=== PATIENT | male | born 1995 | race Caucasian/White ===

== ENCOUNTER 2023-08-31 18:26 | Outpatient (REF) | payer BC, SELFPAY ==
[2023-08-31 21:13] LABS: Abs Immature Grans 0.02 10^3/uL (0.0-0.06); Absolute Basophil Count 0.07 10^3/uL (0.0-0.2); Absolute Eosinophil Count 0.17 10^3/uL (0.0-0.7); Absolute Lymphocyte Count 1.25 10^3/uL (1.2-3.4); Absolute Monocyte Count 0.68 10^3/uL (0.1-0.8); Absolute Neutrophil Count 6.45 10^3/uL (1.2-6.7); Basophils % 0.8; HCT 50.5 % (40.0-50.0); HGB 17.6 g/dL (13.5-17.5); Immature Grans % 0.2; Lymphocytes % 14.5; MCH 30.2 pg (27.0-33.0); MCHC 34.9 % (32.0-36.0); MCV 87 fL (80-95); MPV 10.6 fL (8.0-11.0); Monocytes % 7.9; Neutrophils % 74.6; Platelet Count 232 10^3/uL (130-400); RBC 5.83 10^6/uL (4.36-5.78); RDW 13.2 % (11.8-14.1); RDW-SD 41.1 fL; WBC 8.64 10^3/uL (4.4-10.8)
[2023-08-31 21:21] LABS: ALT 60 U/L (16-63); AST 29 U/L (15-37); Albumin 4.9 g/dL (3.4-5.0); Alkaline Phosphatase 79 U/L (46-116); Anion Gap 11.2 mmol/L (3-11); BUN 12 mg/dL (7-18); Bilirubin, Total 0.7 mg/dL (0.2-1.0); CO2 25.8 mmol/L (21.0-32.0); CREATININE 1.1 mg/dL (0.70-1.30); Calcium 10.3 mg/dL (8.5-10.1); Chloride 99 mmol/L (98-107); Estimated GFR 94.36 (mL/min/1.73m2); Glucose 104 mg/dL (74-106); Magnesium 1.7 mg/dL (1.8-2.4); Sodium 136 mmol/L (136-145); Total Protein 9.4 g/dL (6.4-8.2)
[2023-09-02 11:03] LABS: Campylobacter PCR Negative (Negative); Salmonella PCR Negative (Negative); Shiga Toxin PCR Negative (Negative); Shigella/Enteroinvasive Ecoli Negative (Negative)
== END 2023-08-31 18:27 | disposition home or self-care (01) ==
LOC: LBN 18:26
PROVIDERS: Visit Provider Nurse Practitioner Family
DX: R19.7 Diarrhea, unspecified (principal)
CPT/HCPCS: 80053; 87329; 87505; 83735; 85025; 87177

== ENCOUNTER 2023-08-31 21:03 | Observation (INO) | payer BC, SELFPAY ==
[2023-08-31 21:09] VITALS: BP 130/79; PULSE 81; RESP 18; TEMP 36.4; O2SAT 98
[2023-08-31] MEDS: Ketorolac 15 MG/ML VIAL IVP (22:05)
[2023-08-31] MEDS: MORPHine 4 MG/ML SYR 2 MG IVP (22:05)
[2023-08-31] MEDS: Ondansetron 4 MG/2 ML VIAL IVP (22:05)
[2023-08-31] MEDS: Normal Saline 1,000 ML 1000 ML IV (22:08)
[2023-08-31 22:09] LABS: Abs Immature Grans 0.02 10^3/uL (0.0-0.06); Absolute Basophil Count 0.02 10^3/uL (0.0-0.2); Absolute Monocyte Count 0.45 10^3/uL (0.1-0.8); Absolute Neutrophil Count 6.78 10^3/uL (1.2-6.7); Basophils % 0.2; Eosinophils % 1.2; HCT 50.6 % (40.0-50.0); HGB 17.7 g/dL (13.5-17.5); Immature Grans % 0.2; Lymphocytes % 11.9; MCH 29.9 pg (27.0-33.0); MCV 86 fL (80-95); MPV 9.9 fL (8.0-11.0); Monocytes % 5.4; Neutrophils % 81.1; Platelet Count 230 10^3/uL (130-400); RBC 5.92 10^6/uL (4.36-5.78); RDW 13.1 % (11.8-14.1); RDW-SD 40.6 fL; WBC 8.37 10^3/uL (4.4-10.8)
[2023-08-31 22:24] LABS: ALT 63 U/L (16-63); AST 25 U/L (15-37); Alkaline Phosphatase 79 U/L (46-116); Anion Gap 11.2 mmol/L (3-11); BUN 12 mg/dL (7-18); Bilirubin, Total 0.9 mg/dL (0.2-1.0); CO2 26.8 mmol/L (21.0-32.0); CREATININE 1.2 mg/dL (0.70-1.30); Calcium 10.5 mg/dL (8.5-10.1); Chloride 97 mmol/L (98-107); Glucose 121 mg/dL (74-106); Lipase 39 U/L (16-77); Sodium 135 mmol/L (136-145); Total Protein 10.3 g/dL (6.4-8.2)
[2023-08-31] MEDS: Normal Saline - Diluent 50 ML VIAL IJ (22:39)
[2023-08-31] MEDS: Omnipaque 350 MG/ML 100 ML BTL IJ (22:40)
--- NOTE | 2023-08-31 22:45 | DI.CT_ITS ---
Exam(s) CT ABDOMEN PELVIS W EXAM: CT ABDOMEN PELVIS W CLINICAL HISTORY: abdominal pain, periumbilical, nausea vom diarhhea. TECHNIQUE: Imaging Protocol: Axial computed tomography images with coronal and sagittal reformatted images were created and reviewed CONTRAST MATERIAL: Intravenous: Omnipaque 350 Contrast volume:100 ml Oral: no COMPARISON: No exams were available for comparison FINDINGS: ABDOMEN/PELVIS: Lung Bases: Normal where visualized. Liver: Portal venous air, greater in left lobe. Normal density. No measurable mass. Gallbladder and biliary tract: No radiodense calculus or dilation. Pancreas: Normal density, no abnormal calcifications or inflammatory process. Spleen: Normal. Kidneys: Normal size, contour and axis. No radiodense stones or obstructive uropathy. No suspicious m asses seen. Adrenal glands: No masses seen. Vasculature: Abdominal aorta non-dilated. Soft tissues: Unremarkable. Bladder: No gross wall thickening. No calculi.No focal mass. Bowel: Stomach is somewhat distended with fluid/food and air. There is abnormal gas within the wall of the posterior fundus. There is no wall thickening. The remainder of the stomach is unremarkable. The duodenum appears normal. There is mild dilatation of loops of small bowel in the left upper qu adrant which show fluid. Findings could represent ileus versus partial small bowel obstruction. The colon arm is mainly decompressed with small amount of stool and fluid. The appendix is normal. Peritoneal cavity: No ascites, collection or mesenteric inflammatory response. Bones: Unremarkable for age. Reproductive organs: Within normal limits. Lymph nodes: Unremarkable. IMPRESSION:: Portal venous air. Air seen within the wall of the fundus of the stomach posteriorly. No evidence of wall thickening or perforating ulcer. Mild small bowel dilatation could represent il eus versus partial obstruction. RADIATION DOSE DELIVERED: 860.84mGy.cm Total DLP DATA REPOSITORY: All CT scans at this facility are submitted to the National Radiology Data Registry (NRDR) Dose Index Registry (DIR) with the [employer] (A[employer]). RADIATION OPTIMIZATION: All CT scans at this facility use at least one of these dose optimization te chniques: automated exposure control; mA and/or kV adjustment per patient size (includes targeted exa ms where dose is matched to clinical indication); or iterative reconstruction.
--- NOTE | 2023-08-31 23:26 | ED.GENADUL_ITS ---
Discharge Plan Disposition Patient Disposition: Admit to [facility] Discharge Details Chief Complaint: Abd Prob Clinical Impression: Pneumatosis intestinalis, Gastric anomaly Primary Care Provider: Unknown,Unknown ED Provider: Andrey Mitchell Home Meds and New Rx's Prescriptions: No Action propranolol 120 mg capsule,extended release 24 hr 120 mg PO DAILY Medical Decision Making 28-year-old male presents with 1 day of nausea diarrhea bloating abdominal pain periumbilical in nature, afebrile nontoxic however does appear uncomfortable, periumbilical abdominal pain on palpation without guarding or rebounding; recent family contacts with diarrhea within the last couple of days specifically his child. No history of abdominal surgeries. Patient nontachycardic, normotensi ve. Consider viral gastroenteritis versus biliary colic versus early cholecystitis versus less likely pancreatitis must also consider colitis versus foodborne illness. Will obtain screening labs fluids analgesia antiemetics, CT abdomen pelvis with IV contrast. Disposition pending reassessment and imaging and lab results 23: 49 evidence of pneumatosis of the gastric wall as well as portal venous gas, has started patient on empiric Zosyn, continue with fluids, patient is resting comfortably nonperitoneal nontoxic. Patient has no known risk factors for pneumatosis does not have an ischemic picture to his presentation, no history of Crohn's or ulcerative colitis no recent instrumentation no recent travel no new medications no recent antibiotics, no new exposures such as occupational expos ures or animal exposures; patient was recently in the hospital with his as she is 7 days . Have added C. difficile, ova parasites, stool culture, blood culture. I discussed case with Dr. Waterman general surgery who admit patient for close observation continue fluids and antibiotics. HPI General Date/Time Provider Initiated Documentation: 08/31/23 21:13 . HPI Narrative: 28-year-old male presents with abdominal pain bloating diarrhea nausea since this morning, went to urgent care earlier today, Imodium and Gas-X did not help, was given return precautions for worsening symptoms. Persistent periumbilical abdominal discomfort nausea and bloating, multiple episodes of loose stool. Of note patient's family members have also had diarrhea recently. Related Data Home Medications Medication Instructions Recorded Confirmed propranolol 120 mg capsule,24 120 mg PO DAILY 08/31/23 08/31/23 hr,extended release Allergies Allergy/AdvReac Type Severity Reaction Status Date / Time No Known Allergies Allergy Verified 08/31/23 17:29 General Stated Complaint: Abd Prob MENDY: 3 Review of Systems Narrative: Review of Systems Constitutional: negative Eyes: negative ENT: negative Cardiovascular: negative Respiratory: negative Gastrointestinal: Abdominal pain nausea diarrhea : negative Musculoskeletal: negative Skin: negative Neurologic: negative Psych: negative PFSH All Active Problems (Updated 08/31/23 @ 23:52 by Andrey Mitchell MD) Pneumatosis intestinalis (Acute) Gastric anomaly (Acute) Social History Smoking/Tobacco Use Status: Never Smoking risk assessment performed?: Yes Alcohol Intake: current Alcohol Intake frequency: holidays/special occasions only Alcohol type: beer Drug use: Never Substance use type: does not use Do you feel safe at home: Yes Do you feel safe in your relationship?: Yes Exam Narrative Exam Narrative: Physical Examination General: alert, awake, cooperative, resting comfortably, no acute distress HEENT: normocephalic, atraumatic; PERRL, EOM intact, conjunctiva normal; no nasal discharge; moist mucous membranes, oral and pharyngeal mucosa normal, tolerating secretions Neck: supple, trachea midline; full ROM Chest: normal to inspection Respiratory: normal respiratory effort, speaking in full sentences, clear to auscultation, no wheezing, rales or rhonchi Cardiac: regular rate, regular rhythm, S1S2 intact, no murmurs rubs or gallops GI: abdomen soft, subjective periumbilical discomfort, non-distended; no palpable mass or hepatosplenomegaly Skin: no lesions, rashes or trauma appreciated Neuro: AAOx3, normal speech, moving all extremities Psych: Appropriate mood and affect Course Vital Signs Vital signs: Vital Signs Temperature 36.4 C L 08/31/23 21:09 Pulse 81 08/31/23 21:09 Respiratory Rate 18 08/31/23 21:09 Blood Pressure 130/79 08/31/23 21:09 Pulse Oximetry 98 08/31/23 21:09 Temperature 36.4 C L 08/31/23 21:09 Temperature Source Temporal Artery Scan 08/31/23 21:09 Pulse 81 08/31/23 21:09 Respiratory Rate 18 08/31/23 21:09 Respiratory Effort Normal, Non-Labored 08/31/23 21:23 Blood Pressure 130/79 08/31/23 21:09 Blood Pressure Position Sitting 08/31/23 21:09 Pulse Oximetry 98 08/31/23 21:09 Oxygen Delivery Method Room Air 08/31/23 21:09 Oxygen Flow Rate 0 08/31/23 21:09 Pain Level 6 08/31/23 21:09 Lab/Test Results Lab/Test Results: Laboratory Tests Range/Units 08/31/23 08/31/23 22:01 22:01 WBC (4.4-10.8) 10^3/uL 8.37 RBC (4.36-5.78) 10^6/uL 5.92 H Hgb (13.5-17.5) g/dL 17.7 H Hct (40.0-50.0) % 50.6 H MCV (80-95) fL 86 MCH (27.0-33.0) pg 29.9 MCHC (32.0-36.0) % 35.0 RDW (11.8-14.1) % 13.1 Plt Count (130-400) 10^3/uL 230 MPV (8.0-11.0) fL 9.9 Immature Gran % 0.2 Neutrophils % 81.1 Lymphocytes % 11.9 Monocytes % 5.4 Eosinophils % 1.2 Basophils % 0.2 Nucleated RBC % (0.0-0.3) % 0.0 Absolute Neutrophils (1.2-6.7) 10^3/uL 6.78 H Absolute Lymphocytes (1.2-3.4) 10^3/uL 1.00 L Absolute Monocytes (0.1-0.8) 10^3/uL 0.45 Absolute Eosinophils (0.0-0.7) 10^3/uL 0.10 Absolute Basophils (0.0-0.2) 10^3/uL 0.02 Sodium (136-145) mmol/L 135 L Potassium (3.5-5.1) mmol/L 4.0 Chloride (98-107) mmol/L 97 L Carbon Dioxide (21.0-32.0) mmol/L 26.8 Anion Gap (3-11) mmol/L 11.2 H BUN (7-18) mg/dL 12 Creatinine (0.70-1.30) mg/dL 1.2 Est GFR (CKD-EPI 2020) (mL/min/1.73m2) 85.00 Glucose (74-106) mg/dL 121 H Calcium (8.5-10.1) mg/dL 10.5 H Total Bilirubin (0.2-1.0) mg/dL 0.9 AST (15-37) U/L 25 ALT (16-63) U/L 63 Alkaline Phosphatase (46-116) U/L 79 Total Protein (6.4-8.2) g/dL 10.3 H Albumin (3.4-5.0) g/dL 5.0 Lipase (16-77) U/L 39 PAWSS Have you Been Recently Intoxicated or Drunk Within the Last 30 days?: No Have you Ever Experienced Previous Episodes of Alcohol Withdrawal?: No Have you ever Experienced Withdrawal Seizures?: No Have you ever Experienced Delirium Tremens(DT)s?: No Have you ever undergone Alcohol Rehabilitation Treatment (i.e, in ot outpatie nt treatment programs)?: No Have you ever Experienced Blackouts?: No Have you ever Combined Alcohol with other Downers within the last 90 days?: No Have you ever Combined Alcohol with any other Substance of Abuse during the last 90 days?: No Positive Blood Alcohol level on Presentation? [PCS.BAL]: No Evidence of Increased Autonomic Activity (i.e. HR>120, tremor, sweating, agitation, nausea)?: No Result: 0
--- NOTE | 2023-08-31 23:27 | DI.VRAD_ITS ---
Addendum created by Carol Bee MD on 08/31/2023 11:35:01 PM EDT: Correction of a typographical error in the findings as follows: Stomach and bowel: There is no convincing colonic wall thickening allowing for the submucosal fat deposition. This report contains findings that may be critical to patient care. The pertinent findings were communicated via telephone with Andrey Mitchell at 11:34 PM EDT on 08/31/2023. The findings were acknowledged and understood. Initial report created on 08/31/2023 11:27:11 PM EDT: PROCEDURE INFORMATION: Exam: CT Abdomen And Pelvis With Contrast Exam date and time: 08/31/2023 10:41 PM Age: 28 years old Clinical indication: Other: Abdominal pain, periumbilical, nausea vom diarhhea TECHNIQUE: Imaging protocol: Computed tomography of the abdomen and pelvis with contrast. Radiation optimization: All CT scans at this facility use at least one of these dose optimization techniques: automated exposure control; mA and/or kV adjustment per patient size (includes targeted exams where dose is matched to clinical indication); or iterative reconstruction. Contrast material: OMNI 350; Contrast volume: 100 ml; Contrast route: INTRAVENOUS (IV); COMPARISON: No relevant prior studies available. FINDINGS: Liver: Portal venous gas [id number] liver, moderate in volume. No hepatic masses. Gallbladder and bile ducts: No calcified stones. No ductal dilation. Pancreas: No ductal dilation. No masses. Spleen: No splenomegaly or focal lesions. Adrenal glands: No mass. Kidneys and ureters: No hydronephrosis. No renal masses. Stomach and bowel: The stomach is moderately distended. Posterior gastric wall at the cardia demonstrates pneumatosis without significant wall thickening. Submucosal fat deposition in the colon, likely habitus and or diet related. Moderate distension of mid small bowel with air-fluid levels. No significant wall thickening or pneumatosis. Relatively gradual transition to decompressed small bowel distally. Appendix: No evidence of appendicitis. Intraperitoneal space: No free air. No significant fluid collection. Vasculature: Portal vein, SMV, aorta, IVC are patent. Lymph nodes: No significantly enlarged lymph nodes. Urinary bladder: Unremarkable as visualized. Reproductive: Unremarkable as visualized. Bones/joints: No acute fracture. Soft tissues: No suspicious lesions. Other findings: There is no convincing clinical thickening allowing for the submucosal fat deposition. IMPRESSION: 1. Pneumatosis of the proximal gastric wall without wall thickening, etiology uncertain. 2. Portal venous gas in the liver is likely secondary to the gastric disease. 3. Moderate mid small bowel ileus favored over mechanical obstruction. No small bowel pneumatosis. Dictated and Authenticated by: Carol Bee MD. Ordering:VIRGIL Balderas MD
[2023-09-01] VITALS (10 sets, daily range): BP systolic 103–130; BP diastolic 61–79; PULSE 48–81; RESP 13–19; TEMP 37–37.3; O2SAT 96–98
[2023-09-01 00:31] LABS: Source Nasal/Nares
[2023-09-01] MEDS: PIPERACILLIN/TAZO 3.375 GM in Normal Saline 50 ML IVPB (00:41)
--- NOTE | 2023-09-01 00:43 | NUR.NOTE ---
Nursing Note: Patient takes Propranolol 120mg at bedtime for SVT. Patient took home medication at approximately 0030.
[2023-09-01 00:52] LABS: Abs Immature Grans 0.02 10^3/uL (0.0-0.06); Absolute Basophil Count 0.01 10^3/uL (0.0-0.2); Absolute Eosinophil Count 0.08 10^3/uL (0.0-0.7); Absolute Lymphocyte Count 0.94 10^3/uL (1.2-3.4); Absolute Monocyte Count 0.53 10^3/uL (0.1-0.8); Absolute Neutrophil Count 6.14 10^3/uL (1.2-6.7); Basophils % 0.1; HCT 44.9 % (40.0-50.0); HGB 15.6 g/dL (13.5-17.5); Immature Grans % 0.3; Lymphocytes % 12.2; MCH 30.1 pg (27.0-33.0); MCHC 34.7 % (32.0-36.0); MCV 87 fL (80-95); Monocytes % 6.9; Neutrophils % 79.5; Platelet Count 208 10^3/uL (130-400); RBC 5.19 10^6/uL (4.36-5.78); RDW-SD 40.5 fL; WBC 7.72 10^3/uL (4.4-10.8)
[2023-09-01 01:01] LABS: COVID-19 PCR Negative (Negative)
[2023-09-01] MEDS: Lactated Ringers 1,000 ML 75 ML IV ×2 (02:10→13:41)
[2023-09-01] MEDS: Normal Saline Flush 10 ML SYR IVP ×2 (02:10→08:33)
[2023-09-01 04:52] LABS: C Diff PCR Negative (Negative)
[2023-09-01 06:37] LABS: Abs Immature Grans 0.02 10^3/uL (0.0-0.06); Absolute Basophil Count 0.01 10^3/uL (0.0-0.2); Absolute Lymphocyte Count 1.02 10^3/uL (1.2-3.4); Absolute Monocyte Count 0.69 10^3/uL (0.1-0.8); Absolute Neutrophil Count 5.96 10^3/uL (1.2-6.7); Basophils % 0.1; Eosinophils % 1.3; HCT 44.7 % (40.0-50.0); HGB 15.5 g/dL (13.5-17.5); Immature Grans % 0.3; Lymphocytes % 13.1; MCH 29.9 pg (27.0-33.0); MCHC 34.7 % (32.0-36.0); MCV 86 fL (80-95); MPV 10.4 fL (8.0-11.0); Monocytes % 8.8; Neutrophils % 76.4; Platelet Count 207 10^3/uL (130-400); RBC 5.19 10^6/uL (4.36-5.78); RDW 13.2 % (11.8-14.1)
[2023-09-01 07:49] LABS: Anion Gap 12.3 mmol/L (3-11); BUN 11 mg/dL (7-18); CO2 23.7 mmol/L (21.0-32.0); CREATININE 1.1 mg/dL (0.70-1.30); Calcium 9.9 mg/dL (8.5-10.1); Chloride 100 mmol/L (98-107); Estimated GFR 94.36 (mL/min/1.73m2); Glucose 108 mg/dL (74-106); Magnesium 1.6 mg/dL (1.8-2.4); Potassium 3.9 mmol/L (3.5-5.1); Sodium 136 mmol/L (136-145)
[2023-09-01 08:17] LABS: Procalcitonin 0.2 ng/mL
[2023-09-01] MEDS: Pantoprazole 40 MG VIAL IVP (08:34)
[2023-09-01] MEDS: Psyllium PKT 1 EACH PO (08:34)
--- NOTE | 2023-09-01 08:45 | RT.EKG_ITS ---
APPROVED REPORT Exam: Resting ECG Reason for Exam: irregular HR Patient Location: I HR:72 bpm ECG Measurements Heart Rate 72 AXIS KS 166 P 25 QRSd 96 QRS 83 QT 349 T 16 QTc 382 Conclusion Sinus rhythm...normal P axis, V-rate 50- 99 ST elev, probable normal early repol pattern...ST elevation, age<55
[2023-09-01] MEDS: MAGNESIUM SULFATE 1 GM/100 ML BAG IVPB (09:23)
--- NOTE | 2023-09-01 10:02 | INITIAL_ITS ---
Date of service: 09/01/23 Time of Service: 10:02 Care Management Initial Assmt Initial Assessment REASON FOR HOSPITALIZATION:: Pneumotosis PREVIOUS FUNCTIONAL STATUS/SOCIAL/FAMILY SUPPORTS:: Philippe lives in [place]. His parents, Don and Natalie, live nearby and are supportive. He and his girlfriend recently had their first child, Kam. 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 CURRENT FUNCTIONAL STATUS:: Philippe was lying in bed resting when CM met with him. His mother, Natalie, was in the room visiting. Philippe stated that he is waiting to hear more about his plan from MD, although he feels that he will likely remain at [facility] overnight again. He is looking forward to returning home to spend time with his son, who is only eight days old. CM will continue to follow. ADVANCE DIRECTIVES:: Not on file; CM will offer forms. Has patient been provided with info about the portal/API?: Yes Did the patient sign up for the portal?: No CODE STATUS:: Full Code INSURANCE COVERAGE / FINANCIAL ISSUES:: BC/BS CURRENT HOME/COMMUNITY SERVICES/EQUIPMENT:: none PRIMARY CARE PHYSICIAN:: Nel Ochoa; [facility] POTENTIAL DISCHARGE NEEDS:: PCP f/u using president/gm production & live experiences provider, if no PCP. PATIENT/FAMILY EDUCATION NEEDS:: Review discharge instructions and limitations, discussion of self care needs including ask me three. ANTICIPATED BARRIERS TO DISCHARGE:: none TRANSPORTATION:: via private vehicle by family. PLAN:: Philippe will return home once medically cleared. His family will drive him home via private vehicle when ready. He will follow up with his PCP and discharge plan of care. CM will continue to follow. PFSH All Active Problems (Updated 09/01/23 @ 10:27 by Jane Pan DO) Paroxysmal SVT (supraventricular tachycardia) (Acute) Viral gastroenteritis (Acute) Pneumatosis intestinalis (Acute) Gastric anomaly (Acute) Surgical History (Updated 09/01/23 @ 10:27 by Jane Pan DO) History of cardiac radiofrequency ablation (RFA) Social History Smoking/Tobacco Use Status: Never Smoking risk assessment performed?: Yes Alcohol Intake: current Alcohol Intake frequency: holidays/special occasions only Alcohol type: beer Drug use: Never Substance use type: does not use Housing: house Do you feel safe at home: Yes Do you feel safe in your relationship?: Yes
[2023-09-01 10:03] LABS: Lab Add On Test DONE
--- NOTE | 2023-09-01 10:23 | W.PM.HP.N ---
Date of service: 09/01/23 Time of Service: : Assessment and Plan Assessment and plan (1) Pneumatosis intestinalis: Status: Acute (2) Gastric anomaly: Status: Acute (3) Viral gastroenteritis: Status: Acute Assessment and plan: CT scan reviewed. Clinically patient feels better today. He is having no pain or nausea. He thinks he could eat. Labs are normal today. Do not have a good explanation for the abnormalities noted on CT. Patient denies forceful vomiting. He feels good today. We will try some clears and see how he tolerates this. Continue supportive care. (4) Paroxysmal SVT (supraventricular tachycardia): Status: Acute (5) History of cardiac radiofrequency ablation (RFA): History of Present Illness Narrative: Patient is a 26-year-old male with a history of SVT and cardiac ablation. This is controlled on beta-blockers. Yesterday he developed severe diarrhea and abdominal pain and came into the ER. He had x1 episode of vomiting. He said it was not forceful. He normally does not have a history of GI problems such as Crohn's or ulcerative colitis. He denies any travel. He has not been on antibiotics recently. His girlfriend just gave to their first child and he was in the hospital on OB. He did eat some fast food and fried chicken. His girlfriend ate the same thing and was not ill. No one else at home is ill. He is feeling better today. He is not nauseous. He thinks he might be hungry. He has not had any diarrhea since he has been in the hospital and we have not been able to collect a stool specimen Review of Systems All systems reviewed & are unremarkable except as noted in HPI and below PFSH All Active Problems (Updated 09/01/23 @ 10:27 by Jane Pan DO) Paroxysmal SVT (supraventricular tachycardia) (Acute) Viral gastroenteritis (Acute) Pneumatosis intestinalis (Acute) Gastric anomaly (Acute) Surgical History (Updated 09/01/23 @ 10:27 by Jane Pan DO) History of cardiac radiofrequency ablation (RFA) Social History Smoking/Tobacco Use Status: Never Smoking risk assessment performed?: Yes Alcohol Intake: current Alcohol Intake frequency: holidays/special occasions only Alcohol type: beer Drug use: Never Substance use type: does not use Housing: house Do you feel safe at home: Yes Do you feel safe in your relationship?: Yes Meds Allergies and Home Medications Allergies Allergy/AdvReac Type Severity Reaction Status Date / Time No Known Allergies Allergy Verified 08/31/23 17:29 Home Medications Medication Instructions Recorded Confirmed Type propranolol 120 mg capsule,24 120 mg PO DAILY 08/31/23 08/31/23 History hr,extended release propranolol 20 mg tablet 20 mg PO BID 09/01/23 09/01/23 History Exam Const General: cooperative, healthy appearing and comfortable Nutritional Appearance: overweight Orientation: alert, awake and oriented x3 Other: PHYSICAL EXAM GENERAL APPEARANCE: Alert, healthy appearance, oriented, x 3,? in no acute distress HEAD, EYES, EARS, NECK, THROAT: Head is normocephalic, pupils equal, round, reactive to light and accommodation, ocular movement intact, sclera clear and no jaundice. ?Dentition intact. No sore throat.? No jaw pain. No thrush NECK: no lymphadenopathy.? Trachea midline.? Neck supple.? No JVD LUNGS: normal respiration/normal chest excursion. ?Clear to auscultation bilaterally. ?No wheeze. ?HEART: Regular rate and rhythm. no murmurs EXTREMITY: No edema or cyanosis.? no leg pain, redness, swelling.? ABDOMEN: soft and non-tender to palpation.? Normal bowel sounds.? Results Labs 09/01/23 05:51 09/01/23 05:51 Labs: Laboratory Results - last 24 hr 08/31/23 08/31/23 09/01/23 22:01 22:01 00:27 WBC 8.37 RBC 5.92 H Hgb 17.7 H Hct 50.6 H MCV 86 MCH 29.9 MCHC 35.0 RDW 13.1 Plt Count 230 MPV 9.9 Immature Gran % 0.2 Neutrophils % 81.1 Lymphocytes % 11.9 Monocytes % 5.4 Eosinophils % 1.2 Basophils % 0.2 Nucleated RBC % 0.0 Absolute Neutrophils 6.78 H Absolute Lymphocytes 1.00 L Absolute Monocytes 0.45 Absolute Eosinophils 0.10 Absolute Basophils 0.02 Sodium 135 L Potassium 4.0 Chloride 97 L Carbon Dioxide 26.8 Anion Gap 11.2 H BUN 12 Creatinine 1.2 Est GFR (CKD-EPI 2020) 85.00 Glucose 121 H Calcium 10.5 H Magnesium Total Bilirubin 0.9 AST 25 ALT 63 Alkaline Phosphatase 79 Total Protein 10.3 H Albumin 5.0 Lipase 39 Procalcitonin Stl C.difficile Tox PCR COVID-19 Source Nasal/Nares SARS-CoV-2 (PCR) Negative Add-On Test Request 09/01/23 09/01/23 09/01/23 00:30 03:55 05:51 WBC 7.72 7.80 RBC 5.19 5.19 Hgb 15.6 D 15.5 Hct 44.9 44.7 MCV 87 86 MCH 30.1 29.9 MCHC 34.7 34.7 RDW 13.0 13.2 Plt Count 208 207 MPV 10.0 10.4 Immature Gran % 0.3 0.3 Neutrophils % 79.5 76.4 Lymphocytes % 12.2 13.1 Monocytes % 6.9 8.8 Eosinophils % 1.0 1.3 Basophils % 0.1 0.1 Nucleated RBC % 0.0 0.0 Absolute Neutrophils 6.14 5.96 Absolute Lymphocytes 0.94 L 1.02 L Absolute Monocytes 0.53 0.69 Absolute Eosinophils 0.08 0.10 Absolute Basophils 0.01 0.01 Sodium Potassium Chloride Carbon Dioxide Anion Gap BUN Creatinine Est GFR (CKD-EPI 2020) Glucose Calcium Magnesium Total Bilirubin AST ALT Alkaline Phosphatase Total Protein Albumin Lipase Procalcitonin Stl C.difficile Tox PCR Negative COVID-19 Source SARS-CoV-2 (PCR) Add-On Test Request 09/01/23 09/01/23 09/01/23 05:51 05:51 10:02 WBC RBC Hgb Hct MCV MCH MCHC RDW Plt Count MPV Immature Gran % Neutrophils % Lymphocytes % Monocytes % Eosinophils % Basophils % Nucleated RBC % Absolute Neutrophils Absolute Lymphocytes Absolute Monocytes Absolute Eosinophils Absolute Basophils Sodium 136 Potassium 3.9 Chloride 100 Carbon Dioxide 23.7 Anion Gap 12.3 H BUN 11 Creatinine 1.1 Est GFR (CKD-EPI 2020) 94.36 Glucose 108 H Calcium 9.9 Magnesium 1.6 L Total Bilirubin AST ALT Alkaline Phosphatase Total Protein Albumin Lipase Procalcitonin 0.2 Stl C.difficile Tox PCR COVID-19 Source SARS-CoV-2 (PCR) Add-On Test Request DONE Last Vital Signs Temp 37.0 C 09/01/23 09:10 Pulse 70 09/01/23 09:10 Resp 16 09/01/23 09:10 BP 118/74 09/01/23 09:10 Pulse Ox 97 09/01/23 09:10 PAWSS Have you Been Recently Intoxicated or Drunk Within the Last 30 days?: No Have you Ever Experienced Previous Episodes of Alcohol Withdrawal?: No Have you ever Experienced Withdrawal Seizures?: No Have you ever Experienced Delirium Tremens(DT)s?: No Have you ever undergone Alcohol Rehabilitation Treatment (i.e, inpt ot outpatient treatment programs)?: No Have you ever Experienced Blackouts?: No Have you ever Combined Alcohol with other Downers within the last 90 days?: No Have you ever Combined Alcohol with any other Substance of Abuse during the last 90 days?: No Positive Blood Alcohol level on Presentation? [PCS.BAL]: No Evidence of Increased Autonomic Activity (i.e. HR>120, tremor, sweating, agitation, nausea)?: No Result: 0 Time Spent Time spent with Patient: 40-54 minutes Time was spent: preparing to see the patient(eg.review tests), obtaining and/or reviewing separately otained hiistory, ordering medications,tests, procedures, referring, communicating with other health manager urgent care, indepentently interpreting results, counseling the patient and care coordination
[2023-09-01 10:42] LABS: Troponin I < 50 ng/L (<or=60)
[2023-09-01] MEDS: Acetaminophen 500 MG TAB 1000 MG PO ×2 (11:19→16:50)
--- NOTE | 2023-09-01 13:45 | RT.EKG_ITS ---
APPROVED REPORT Exam: Resting ECG Reason for Exam: follow up from previous EKG Patient Location: I HR:57 bpm ECG Measurements Heart Rate 57 AXIS NH 160 P 12 QRSd 100 QRS 83 QT 377 T 25 QTc 367 Conclusion Sinus arrhythmia...V-rate 47- 65, variation>10% ST elev, probable normal early repol pattern...ST elevation, age<55
--- NOTE | 2023-09-01 17:24 | DSE_ITS ---
Date of service: 09/01/23 Time of Service: 17:24 DS: Diagnosis Discharge Diagnosis (1) Viral gastroenteritis: Status: Acute (2) Paroxysmal SVT (supraventricular tachycardia): Status: Acute (3) History of cardiac radiofrequency ablation (RFA): Discharge Plan Disposition Patient Disposition: Home Condition: Improving Discharge Details Reason For Visit: Viral gastroenteritis Admit Date/Time: 08/31/23 23:50 Admit Provider: Jony Waterman Attending Provider: Jony Waterman Primary Care Provider: Unknown,Unknown Hospital Course Hospital Course: Patient was admitted through the ER on 08/31 with acute onset nausea vomiting, abdominal pain, and diarrhea. He was dehydrated at that point. He has a history of SVT and If he became dehydrated it was set off his SVTs that he came into the ER. CT was done. Please see results in [employer]. Patient was kept overnight for obse rvation, IV hydration, and pain management. CBC today is normal. C. difficile is negative. Infectious diarrhea panel is still pending at this time. Patient is feeling good. He has no abdominal pain. He has no nausea. He is tolerating clear liquids. He still has some mild diarrhea but this is improving. He would like to be discharged to home. He does have a at home and he is cauti oned that he may infectious and to practice good hand hygiene and to not be around the infant for another 24 hours. He declines medication for nausea. Will be discharged to home. If the nausea and the abdominal pain return, the patient should come back to the emergency room. Patient understood all discharge in stable and satisfactory condition. Home Meds and New Rx's Prescriptions: No Action propranolol 120 mg capsule,extended release 24 hr 120 mg PO DAILY propranolol 20 mg Tablet 20 mg PO BID Discharge Instructions Instructions: Gastroenteritis (GEN) Additional Instructions: -No driving for 24 hrs -You may find that your appetite is smaller. Eat 3-6 small meals throughout the day. It is important to drink lots of water after surgery, 6-10 glasses a day. -Try to follow a brat diet for the next 72 hours. -We do want you up walking, at least 5-6 times per day. This is very important to prevent pneumonia and blood clots. You can climb stairs, take them slowly. -You may find that you are very tired after being in the hospital- this is normal. -No strenuous activity for the next 72 hours. -please do not smoke for a minimum of 72 hours. -It is recommended you not be around a infant if you have fever greater than 100.5, vomiting, or diarrhea (which is defined as 3 or more loose stools a day.). 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 -If you develop an increase in nausea, abdominal pain, vomiting blood or cannot keep fluids down, fever greater than 100.5, return to the emergency department. -BRAT Diet NUTRITION FOR NAUSEA, VOMITING OR DIARRHEA Nutrition for nausea, vomiting or diarrhea consists of foods that are bland and gentle on the stomach. If you have nausea or vomiting, it may be hard to hold down food. Some foods may even make your symptoms worse. If you are experiencing diarrhea, the diet suggested below may help solidify your stools. You may have heard of the BRAT diet which stands for?Bananas,?Rice,?Apples, and? [place].?The BRAT diet was often recommended for nausea, vomiting and diarrhea, but is no longer because of how restrictive it is. Below are lists of foods to focus on and avoid when experiencing nausea, vomiting or diarrhea, but there are many more foods that can be included. FOODS TO FOCUS ON? * ?Soft fruits: bananas, applesauce, avocado, pumpkin, canned fruit (packed in water not heavy syrup), and melons * ?Steamed or boiled vegetables: carrots, green beans, potatoes, and squash? * ?Low-fiber starches: white bread, white rice, saltine crackers, cream of wheat, instant oatmeal, and noodles * ?Unseasoned skinless baked chicken or turkey, scrambled eggs, yogurt and kefir * ?Drinks: bone broth, apple juice, coconut water, Pedialyte, weak tea * ?Homemade oral rehydration solution to prevent dehydration: 1 Liter of clean or boiled water, mix in 1/2 teaspoon of salt and 6 teaspoons of sugar and stir until both salt and sugar are completely dissolved. Cool down the water to room temperature or cooler before drinking. FOODS TO AVOID * ?Avoid milk and dairy products for three days. Yogurt and kefir are okay? * ?Avoid fried, fatty, greasy and spicy foods * ?Avoid pork, veal, salmon, and sardines * ?Avoid raw vegetables such as parsnips, beets, sauerkraut, corn on the cob, cabbage, broccoli, cauliflower, and onions * ?Avoid citrus fruits: pineapples, oranges, grapefruits, mariana and limes * ?Other fruits to avoid:? tomatoes, cherries, grapes, figs, raisins, and seeded berries * ?Avoid extremely hot or cold beverages * ?Avoid alcohol * ?Avoid coffee and caffeinated sodas * ?Avoid added sugars and sweets like candy, soda and most juice Stand Alone Forms: Nursing Discharge Form Activity:: See above Equipment/Supplies:: No Equipment Needed Diet:: See above DS: Summary Time Spent with Patient providing and/or coordinating discharge services: Less than 30 minutes Status at Discharge Functional status at discharge: independent ambulation Overall status at discharge: patient is progressing back to baseline Mental Status: mental status grossly normal Speech and Movement: speech and movement normal Mood: congruent mood Affect: normal affect Exam Psych Mental Status: mental status grossly normal Speech and Movement: speech and movement normal Mood: congruent mood Affect: normal affect DS: Data Vitals/I&O Vitals and I&O: Vital Signs Temperature 37.0 C 09/01/23 14:36 Temperature Source Tympanic 09/01/23 14:36 Pulse 63 09/01/23 14:36 Pulse Rhythm Irregular 09/01/23 08:39 Pulse 48 L 09/01/23 00:50 Respiratory Rate 19 09/01/23 14:36 Respiratory Effort Normal, Non-Labored 09/01/23 17:07 Respiratory Depth Normal 09/01/23 17:07 Respiratory Pattern Normal 09/01/23 17:07 Blood Pressure 105/66 09/01/23 14:36 Blood Pressure Position Sitting 08/31/23 21:09 Pulse Oximetry 98 09/01/23 14:36 Oxygen Delivery Method Room Air 09/01/23 14:36 Oxygen Flow Rate 0 09/01/23 14:36 Pain Level 2 09/01/23 16:50 Intake & Output 08/31/23 09/01/23 09/01/23 23:59 11:59 23:59 Intake Total 1270 / 2132.5 862.5 / 2132.5 Balance 1270 / 2132.5 862.5 / 2132.5 Weight 90.718 kg 90.718 kg Intake: IV 1150 / 2011.5 862.5 / 2011.5 Oral 120 / 120 Other: Urine Appearance Clear Clear Comment pt reports voiding independently in the toilet x3 today Stool Size Small Stool Characteristics Soft Voiding Methods Toilet Data Completed and Pending Labs on day of discharge: Labs from last 24 hours 09/01/23 09/01/23 09/01/23 10:13 10:02 05:51 WBC RBC Hgb Hct MCV MCH MCHC RDW Plt Count MPV Immature Gran % Neutrophils % Lymphocytes % Monocytes % Eosinophils % Basophils % Nucleated RBC % Absolute Neutrophils Absolute Lymphocytes Absolute Monocytes Absolute Eosinophils Absolute Basophils Sodium Potassium Chloride Carbon Dioxide Anion Gap BUN Creatinine Est GFR (CKD-EPI 2020) Glucose Calcium Magnesium Total Bilirubin AST ALT Alkaline Phosphatase Troponin I < 50 Total Protein Albumin Lipase Procalcitonin 0.2 Stool Description Stool Campylobacter PCR Stl C.difficile Tox PCR Stool Salmonella PCR Stool Shigella PCR Stool Ova & Parasites COVID-19 Source SARS-CoV-2 (PCR) Shiga Toxin (PCR) Add-On Test Request DONE 09/01/23 09/01/23 09/01/23 05:51 05:51 03:55 WBC 7.80 RBC 5.19 Hgb 15.5 Hct 44.7 MCV 86 MCH 29.9 MCHC 34.7 RDW 13.2 Plt Count 207 MPV 10.4 Immature Gran % 0.3 Neutrophils % 76.4 Lymphocytes % 13.1 Monocytes % 8.8 Eosinophils % 1.3 Basophils % 0.1 Nucleated RBC % 0.0 Absolute Neutrophils 5.96 Absolute Lymphocytes 1.02 L Absolute Monocytes 0.69 Absolute Eosinophils 0.10 Absolute Basophils 0.01 Sodium 136 Potassium 3.9 Chloride 100 Carbon Dioxide 23.7 Anion Gap 12.3 H BUN 11 Creatinine 1.1 Est GFR (CKD-EPI 2020) 94.36 Glucose 108 H Calcium 9.9 Magnesium 1.6 L Total Bilirubin AST ALT Alkaline Phosphatase Troponin I Total Protein Albumin Lipase Procalcitonin Stool Description Pending Stool Campylobacter PCR Pending Stl C.difficile Tox PCR Stool Salmonella PCR Pending Stool Shigella PCR Pending Stool Ova & Parasites Pending COVID-19 Source SARS-CoV-2 (PCR) Shiga Toxin (PCR) Pending Add-On Test Request 09/01/23 09/01/23 09/01/23 03:55 00:30 00:27 WBC 7.72 RBC 5.19 Hgb 15.6 D Hct 44.9 MCV 87 MCH 30.1 MCHC 34.7 RDW 13.0 Plt Count 208 MPV 10.0 Immature Gran % 0.3 Neutrophils % 79.5 Lymphocytes % 12.2 Monocytes % 6.9 Eosinophils % 1.0 Basophils % 0.1 Nucleated RBC % 0.0 Absolute Neutrophils 6.14 Absolute Lymphocytes 0.94 L Absolute Monocytes 0.53 Absolute Eosinophils 0.08 Absolute Basophils 0.01 Sodium Potassium Chloride Carbon Dioxide Anion Gap BUN Creatinine Est GFR (CKD-EPI 2020) Glucose Calcium Magnesium Total Bilirubin AST ALT Alkaline Phosphatase Troponin I Total Protein Albumin Lipase Procalcitonin Stool Description Stool Campylobacter PCR Stl C.difficile Tox PCR Negative Stool Salmonella PCR Stool Shigella PCR Stool Ova & Parasites COVID-19 Source Nasal/Nares SARS-CoV-2 (PCR) Negative Shiga Toxin (PCR) Add-On Test Request 08/31/23 08/31/23 22:01 22:01 WBC 8.37 RBC 5.92 H Hgb 17.7 H Hct 50.6 H MCV 86 MCH 29.9 MCHC 35.0 RDW 13.1 Plt Count 230 MPV 9.9 Immature Gran % 0.2 Neutrophils % 81.1 Lymphocytes % 11.9 Monocytes % 5.4 Eosinophils % 1.2 Basophils % 0.2 Nucleated RBC % 0.0 Absolute Neutrophils 6.78 H Absolute Lymphocytes 1.00 L Absolute Monocytes 0.45 Absolute Eosinophils 0.10 Absolute Basophils 0.02 Sodium 135 L Potassium 4.0 Chloride 97 L Carbon Dioxide 26.8 Anion Gap 11.2 H BUN 12 Creatinine 1.2 Est GFR (CKD-EPI 2020) 85.00 Glucose 121 H Calcium 10.5 H Magnesium Total Bilirubin 0.9 AST 25 ALT 63 Alkaline Phosphatase 79 Troponin I Total Protein 10.3 H Albumin 5.0 Lipase 39 Procalcitonin Stool Description Stool Campylobacter PCR Stl C.difficile Tox PCR Stool Salmonella PCR Stool Shigella PCR Stool Ova & Parasites COVID-19 Source SARS-CoV-2 (PCR) Shiga Toxin (PCR) Add-On Test Request 09/01/23 00:30 Blood Blood Culture - Pending 10/06/23 00:23 Blood Blood Culture - Pending Preliminary micro results at discharge 09/01/23 00:30 Blood Culture - Pending Blood 09/01/23 00:23 Blood Culture - Pending Blood PFSH All Active Problems (Updated 09/01/23 @ 10:27 by Jane Pan DO) Paroxysmal SVT (supraventricular tachycardia) (Acute) Viral gastroenteritis (Acute) Pneumatosis intestinalis (Acute) Gastric anomaly (Acute) Surgical History (Updated 09/01/23 @ 10:27 by Jane Pan DO) History of cardiac radiofrequency ablation (RFA) Social History Smoking/Tobacco Use Status: Never Smoking risk assessment performed?: Yes Alcohol Intake: current Alcohol Intake frequency: holidays/special occasions only Alcohol type: beer Drug use: Never Substance use type: does not use Housing: house Do you feel safe at home: Yes Do you feel safe in your relationship?: Yes Time Spent with Patient Time Spent with Patient: <45 minutes Time was spent: preparing to see the patient(eg.review tests), obtaining and/or reviewing separately otained hiistory, ordering medications,tests, procedures, referring, communicating with other health critical care unit nurse, indepentently interpreting results, counseling the patient and care coordination
--- NOTE | 2023-09-01 17:40 | PGE_ITS ---
Date of Service Date of service: 09/01/23 Time of Service: 17:41 Assessment and Plan Assessment and plan (1) Viral gastroenteritis: Status: Acute Assessment and plan: d/c home see d/c orders (2) Paroxysmal SVT (supraventricular tachycardia): Status: Acute Assessment and plan: no changes in EKG trop is neg. Subjective Subjective Interval history since last seen: Pt is doing well. no headaches. No CP or SOB. no dysuria. no leg pain or swelling. He is tolerating clears. No abdominal pain. no n/v. no fevers. Diarrhea is improving. infectious diarrhea panel is pd. Exam Const Other: no abdominal pain. specifically no pain in LUQ. Objective Last Vital Signs Temp 37.0 C 09/01/23 14:36 Pulse 63 09/01/23 14:36 Resp 19 09/01/23 14:36 BP 105/66 09/01/23 14:36 Pulse Ox 98 09/01/23 14:36 Laboratory Results - last 24 hr 08/31/23 08/31/23 09/01/23 22:01 22:01 00:27 WBC 8.37 RBC 5.92 H Hgb 17.7 H Hct 50.6 H MCV 86 MCH 29.9 MCHC 35.0 RDW 13.1 Plt Count 230 MPV 9.9 Immature Gran % 0.2 Neutrophils % 81.1 Lymphocytes % 11.9 Monocytes % 5.4 Eosinophils % 1.2 Basophils % 0.2 Nucleated RBC % 0.0 Absolute Neutrophils 6.78 H Absolute Lymphocytes 1.00 L Absolute Monocytes 0.45 Absolute Eosinophils 0.10 Absolute Basophils 0.02 Sodium 135 L Potassium 4.0 Chloride 97 L Carbon Dioxide 26.8 Anion Gap 11.2 H BUN 12 Creatinine 1.2 Est GFR (CKD-EPI 2020) 85.00 Glucose 121 H Calcium 10.5 H Magnesium Total Bilirubin 0.9 AST 25 ALT 63 Alkaline Phosphatase 79 Troponin I Total Protein 10.3 H Albumin 5.0 Lipase 39 Procalcitonin Stl C.difficile Tox PCR COVID-19 Source Nasal/Nares SARS-CoV-2 (PCR) Negative Add-On Test Request 09/01/23 09/01/23 09/01/23 00:30 03:55 05:51 WBC 7.72 7.80 RBC 5.19 5.19 Hgb 15.6 D 15.5 Hct 44.9 44.7 MCV 87 86 MCH 30.1 29.9 MCHC 34.7 34.7 RDW 13.0 13.2 Plt Count 208 207 MPV 10.0 10.4 Immature Gran % 0.3 0.3 Neutrophils % 79.5 76.4 Lymphocytes % 12.2 13.1 Monocytes % 6.9 8.8 Eosinophils % 1.0 1.3 Basophils % 0.1 0.1 Nucleated RBC % 0.0 0.0 Absolute Neutrophils 6.14 5.96 Absolute Lymphocytes 0.94 L 1.02 L Absolute Monocytes 0.53 0.69 Absolute Eosinophils 0.08 0.10 Absolute Basophils 0.01 0.01 Sodium Potassium Chloride Carbon Dioxide Anion Gap BUN Creatinine Est GFR (CKD-EPI 2020) Glucose Calcium Magnesium Total Bilirubin AST ALT Alkaline Phosphatase Troponin I Total Protein Albumin Lipase Procalcitonin Stl C.difficile Tox PCR Negative COVID-19 Source SARS-CoV-2 (PCR) Add-On Test Request 09/01/23 09/01/23 09/01/23 05:51 05:51 10:02 WBC RBC Hgb Hct MCV MCH MCHC RDW Plt Count MPV Immature Gran % Neutrophils % Lymphocytes % Monocytes % Eosinophils % Basophils % Nucleated RBC % Absolute Neutrophils Absolute Lymphocytes Absolute Monocytes Absolute Eosinophils Absolute Basophils Sodium 136 Potassium 3.9 Chloride 100 Carbon Dioxide 23.7 Anion Gap 12.3 H BUN 11 Creatinine 1.1 Est GFR (CKD-EPI 2020) 94.36 Glucose 108 H Calcium 9.9 Magnesium 1.6 L Total Bilirubin AST ALT Alkaline Phosphatase Troponin I Total Protein Albumin Lipase Procalcitonin 0.2 Stl C.difficile Tox PCR COVID-19 Source SARS-CoV-2 (PCR) Add-On Test Request DONE 09/01/23 10:13 WBC RBC Hgb Hct MCV MCH MCHC RDW Plt Count MPV Immature Gran % Neutrophils % Lymphocytes % Monocytes % Eosinophils % Basophils % Nucleated RBC % Absolute Neutrophils Absolute Lymphocytes Absolute Monocytes Absolute Eosinophils Absolute Basophils Sodium Potassium Chloride Carbon Dioxide Anion Gap BUN Creatinine Est GFR (CKD-EPI 2020) Glucose Calcium Magnesium Total Bilirubin AST ALT Alkaline Phosphatase Troponin I < 50 Total Protein Albumin Lipase Procalcitonin Stl C.difficile Tox PCR COVID-19 Source SARS-CoV-2 (PCR) Add-On Test Request PAWSS Have you Been Recently Intoxicated or Drunk Within the Last 30 days?: No Have you Ever Experienced Previous Episodes of Alcohol Withdrawal?: No Have you ever Experienced Withdrawal Seizures?: No Have you ever Experienced Delirium Tremens(DT)s?: No Have you ever undergone Alcohol Rehabilitation Treatment (i.e, inpt ot outpatient treatment programs)?: No Have you ever Experienced Blackouts?: No Have you ever Combined Alcohol with other Downers within the last 90 days?: No Have you ever Combined Alcohol with any other Substance of Abuse during the last 90 days?: No Positive Blood Alcohol level on Presentation? [PCS.BAL]: No Evidence of Increased Autonomic Activity (i.e. HR>120, tremor, sweating, agitation, nausea)?: No Result: 0 Time Spent with Patient Time Spent with Patient: <25 minutes Time was spent: preparing to see the patient(eg.review tests), obtaining and/or reviewing separately otained hiistory, ordering medications,tests, procedures, referring, communicating with other health care program resident, indepentently interpreting results, counseling the patient and care coordination
[2023-09-02 21:01] LABS: Campylobacter PCR Negative (Negative); Salmonella PCR Negative (Negative); Shiga Toxin PCR Negative (Negative); Shigella/Enteroinvasive Ecoli Negative (Negative)
== END 2023-09-01 18:08 | disposition home or self-care (01) ==
LOC: ER 09-01 00:33 → MS 09-01 01:43
PROVIDERS: Emergency Medicine; Internal Medicine; Surgery; Admitting Provider Surgery; Emergency Provider Emergency Medicine; Visit Provider Surgery
DX: K63.89 Other specified diseases of intestine (principal); A08.4 Viral intestinal infection, unspecified; Q40.3 Congenital malformation of stomach, unspecified; I47.10 Supraventricular tachycardia, unspecified; Z98.890 Other specified postprocedural states; R10.9 Unspecified abdominal pain; R19.7 Diarrhea, unspecified; R11.2 Nausea with vomiting, unspecified; Z79.899 Other long term (current) drug therapy
CPT/HCPCS: 36415; 80048; 80053; 83690; 84145; 87040; 87493; 87505; 87635; 96361; 96365; 96375; 99285; 74177; 83735; 84484; 85025; 87177; 93005; 93010; G0378; J1885; J2270; J2405; J2543; J3475; J3490